=== PATIENT | male | born 1970 | race Caucasian/White ===

== ENCOUNTER 2017-09-16 15:32 | Emergency (ER) | payer SELFPAY ==
[~2017-09-16] VITALS: Ht 182.9 cm; Wt 78.3 kg
[2017-09-16 15:37] VITALS: BP 172/98
[2017-09-16] MEDS ORDERED: MOTRIN800 MG PO (16:18)
== END 2017-09-16 16:45 | disposition home or self-care (01) ==
LOC: EME 15:32
DX: S63.91XA Sprain of unspecified part of right wrist and hand, initial encounter (principal); I10 Essential (primary) hypertension; F17.200 Nicotine dependence, unspecified, uncomplicated; W11.XXXA Fall on and from ladder, initial encounter
CPT/HCPCS: 73130; 99281; 99284